=== PATIENT | male | born 1940 | race Caucasian/White ===

== ENCOUNTER 2017-01-14 03:09 | Emergency (ER) | payer MEDICARE ==
--- NOTE | ~2017-01-14 | EKG ---
PATIENT: PATRIC COHEN UNIT #: [id number] Ventricular Rate: 65 BPM Atrial Rate: 65 BPM P-R Interval: 180 ms QRS Duration: 104 ms Q-T Interval: 412 ms QTC Calculation(Bezet): 428 ms P Alexis: 70 degrees Calculated R Alexis: -59 degrees Calculated T Alexis: 55 degrees Diagnosis Line: Normal sinus rhythm Diagnosis Line: Incomplete right bundle branch block Diagnosis Line: Left anterior fascicular block Diagnosis Line: Cannot rule out Septal infarct , age undetermined Diagnosis Line: Abnormal ECG Diagnosis Line: No previous ECGs available Diagnosis Line: Confirmed by APRIL OLIVAS MD ([id number]) on 01/14/2017 Diagnosis Line: 10:04:57 AM INTERPRETING MD: DEISY VASQUEZ
--- NOTE | ~2017-01-14 | CT71 ---
[facility] A Service of [facility] RADIOLOGY TEXT RESULTS PATIENT: PATRIC COHEN LOCATION: [facility] : 36 UNIT #: [id number] AGE: [address]: Dawson Gonsalez MD SEX: M ORDER DR: [id number] [facility]. [place], [place] [address] [id number] MR#: [id number] Acc #: [id number] NAME: PATRIC COHEN : 1940 SEX: M STUDY DATE/TIME: 01/14/2017 5:16 UNIT: [facility] ROOM: STUDY DESCRIPTION: CT Head Wo Contrast Attending Physician: Brad Faustin M.D. Ordering Physician: Brad Faustin M.D. Primary Care Physician: Primary Care Physician No MEDICAL IMAGING REPORT This report is preliminary unless electronic signature is present EXAM Noncontrast head CT HISTORY Dizziness, vomiting since 12:00 a.m. Weakness. TECHNIQUE This CT examination was performed with one or more of the following radiation dose reduction techniques: automatic exposure control, adjustment of mA and/or kV according to patient size, and iterative reconstruction. FINDINGS Axial noncontrast imaging of the brain demonstrates generalized atrophy but in keeping with the patient's advanced age. No mass, mass effect or midline shift. No hemorrhage or abnormal extraaxial fluid collections. Small amount of maxillary sinus mucosal thickening. Partial opacification of the ethmoids. Skull base, mastoids unremarkable. There is also left sphenoid sinus mucosal disease. IMPRESSION No acute intracranial abnormality identified. Bilateral ethmoid and left sphenoid sinus disease as well as a trace amount of mucosal thickening floor of both maxillary sinuses. No convincing evidence of an acute sinusitis. Dictated by... Sarahy Meyers M.D. THIS IS AN ELECTRONICALLY VERIFIED REPORT Sarahy Meyers M.D. at 01/14/2017 10:08 PM [facility] A Service of [facility] RADIOLOGY TEXT RESULTS PATIENT: PATRIC COHEN LOCATION: [facility] : 36 UNIT #: [id number] AGE: [address]: Dawson Gonsalez MD SEX: M ORDER DR: STORMY/stacey TD: 01/14/2017 06:22 JOB #: [id number] MEDICAL IMAGING REPORT Page 1 of 1 COPY
[~2017-01-14 03:09] MED LIST: AZITHROMYCIN250 MG PO; BETAPACE PO; COUMADIN PO; LEVAQUIN PO; MEDROL DOSEPAK4 MG DOB; PRILOSEC PO; ROBITUSSIN-DM118 M1; ROBITUSSIN-DM120 ML PO; TYLENOL PO
[2017-01-14 05:31] LABS: POC - CKMB 1.9 ng/mL (0.0-7.9); POC - TROPONIN <0.05 ng/mL (<=0.05)
[2017-01-14 05:41] LABS: BASOPHIL% 0.3 % (0-2.5); EOSINOPHIL# 0.1 X10e3 (0-0.7); EOSINOPHIL% 0.5 % (0.0-7.0); HEMOGLOBIN 10.9 gm/dL (13.0-16.0); LYMPHOCYTE# 0.5 X10e3 (1.0-3.5); LYMPHOCYTE% 4.7 % (17.0-45.0); MEAN CELL VOLUME 81.7 FL (83-96); MEAN CORPUSCULAR HEMOGLOBIN 26.3 PG (28-34); MEAN CORPUSCULAR HGB CONC 32.2 g/dL (30-36); MEAN PLATELET VOLUME 8.9 FL (6.5-11.5); MONOCYTE# 0.4 X10e3 (0-1.0); MONOCYTE% 4.1 % (3.0-12.0); NEUTROPHIL# 9.2 X10e3 (1.5-7.1); NEUTROPHIL% 90.4 % (40-75); PLATELET COUNT 207 X10e3 (140-420); RED BLOOD COUNT 4.16 X10e (3.90-5.60); WHITE BLOOD COUNT 10.2 X10e3 (4.0-10.5)
[2017-01-14 05:42] LABS: DIFF IND NO
[2017-01-14 06:05] LABS: BILIRUBIN, DIRECT 0.1 mg/dL (0.0-0.2); BILIRUBIN,INDIRECT 0.3 mg/dL (0.0-0.9); BILIRUBIN,TOTAL 0.4 mg/dL (0.2-2.0); CALCIUM SERUM 8.9 mg/dL (8.4-10.2); GLOM FILT RATE Estimated 71.8 mL/min (>60); POTASSIUM 4.1 mmol/L (3.5-5.1)
[2017-01-14 08:49] LABS: POC - CKMB 2.3 ng/mL (0.0-7.9); POC - TROPONIN <0.05 ng/mL (<=0.05)
== END 2017-01-14 09:24 | disposition home or self-care (01) ==
LOC: CED 03:09
PROVIDERS: Emergency Medicine
DX: J01.90 Acute sinusitis, unspecified (principal); R42 Dizziness and giddiness; J45.909 Unspecified asthma, uncomplicated; Z88.0 Allergy status to penicillin
CPT/HCPCS: 36415; 70450; 80048; 80076; 82553; 84484; 85025; 93005; 99284